=== PATIENT | female | born 1950 | race Asian ===

== ENCOUNTER 2019-03-27 20:05 | Emergency (ER) | payer MEDICARE, OTHER ==
[~2019-03-27] VITALS: Ht 152.4 cm; Wt 44.5 kg
[2019-03-27 20:33] VITALS: BP 125/44
--- NOTE | 2019-03-27 20:37 | NUR ---
PT AMBULATED TO LOBBY WITH STEADY GAIT.
--- NOTE | 2019-03-27 22:00 | NUR ---
PATIENT AMBULATED TO RESTROOM WITH STANDBY ASSISTANCE.
--- NOTE | 2019-03-27 22:05 | NUR ---
ED MD AT BEDSIDE.
[2019-03-27] MEDS ORDERED: ONDANSETRON 4 MG/2 ML VIAL IM ONE (22:15)
--- NOTE | 2019-03-27 22:17 | NUR ---
69 Y/O F PRESENTS TO ED WITH COMPLAINTS OF DIZZINESS THAT STARTED EARLY TODAY. PATIENT REPORTS VOMITING TWICE TODAY. REPORTS BASELINE HEART RATE IS USUALLY BRADYCARDIC-HR:[id number]'[id number]. PATIENT IS ANOx4, GAIT IS STEADY BUT NEEDS STANDYBY ASSISTANCE. SIDERAILS UP x2, WILL CONTINUE TO MONITOR.
[2019-03-27] MEDS ORDERED: MECLIZINE 25 MG TAB PO ONE (22:30)
--- NOTE | 2019-03-27 22:46 | NUR ---
PATIENT TAKEN TO CT VIA WHEELCHAIR, PATIENT ABLE TO AMBULATE TO WHEELCHAIR.
--- NOTE | 2019-03-27 22:55 | NUR ---
PT. BACK FROM CT; WHEELCHAIRED TO BED.
[2019-03-27 23:40] VITALS: BP 126/42
--- NOTE | 2019-03-27 23:40 | NUR ---
Patient discharged with v/s stable. Written and verbal after care instructions given and explained. Pt encouraged to change positions slowly and drink plenty of fluid. Patient alert, oriented and verbalized understanding of instructions. Ambulatory with steady gait. All questions addressed prior to discharge. ID band removed. Patient advised to follow up with PMD. Rx of MECLIZINE HYDROCHLORIDE 25MG was given. Patient educated on indication of medication including possible reaction and side effects. Opportunity to ask questions provided and answered.
== END 2019-03-27 23:40 | disposition home or self-care (01) ==
LOC: MED 20:05
DX: H81.10 Benign paroxysmal vertigo, unspecified ear (principal)
CPT/HCPCS: 70450; 93005; 96372; 99284; J2405; J8597